=== PATIENT | female | born 1960 | race Caucasian/White ===

== ENCOUNTER 2025-06-23 19:29 | Emergency (ER) | payer MEDICARE | END 2025-06-23 22:32 | disposition home or self-care (01) | LOC: JP.ED 19:29 | DX: S00.83XA Contusion of other part of head, initial encounter (principal); S09.90XA Unspecified injury of head, initial encounter; J44.89 Other specified chronic obstructive pulmonary disease; F17.200 Nicotine dependence, unspecified, uncomplicated; Z79.82 Long term (current) use of aspirin; Z79.899 Other long term (current) drug therapy; Z90.710 Acquired absence of both cervix and uterus; W19.XXXA Unspecified fall, initial encounter; Y92.001 Dining room of unspecified non-institutional (private) residence as the place of occurrence of the external cause; Y92.009 Unspecified place in unspecified non-institutional (private) residence as the place of occurrence of the external cause | CPT/HCPCS: 70450; 70486; 72125; 76377; 99283 ==

== ENCOUNTER 2025-09-10 22:59 | Inpatient (IN) | payer MEDICARE ==
[2025-09-11 00:36] LABS: BASOPHILS ABSOLUTE AUTO 0.03 K/uL (0.00-0.10); BASOPHILS PERCENT AUTO 0.2 % (0.1-1.3); EOSINOPHILS PERCENT AUTO 0.0 % (0.0-5.4); IMMATURE GRAN ABSOLUTE AUTO 0.09 K/uL (0.00-0.23); IMMATURE GRAN PERCENT AUTO 0.7 % (0.0-0.7); LYMPHOCYTES ABSOLUTE AUTO 1.17 K/uL (0.8-3.3); LYMPHOCYTES PERCENT AUTO 8.7 % (11.4-47.7); MONOCYTES ABSOLUTE AUTO 0.60 K/uL (0.20-0.90); MONOCYTES PERCENT AUTO 4.4 % (3.3-12.6); NEUTROPHILS ABSOLUTE AUTO 11.63 K/uL (1.0-7.6); NEUTROPHILS PERCENT AUTO 86.0 % (40.0-78.1); PLATELET COUNT,PLT 291 K/uL (130-375); RED BLOOD CELL COUNT 4.54 M/uL (3.77-5.24); WHITE BLOOD CELL COUNT,WBC 13.5 K/uL (3.2-11.0)
[2025-09-11 00:40] LABS: EOSINOPHILS ABSOLUTE AUTO 0.00 K/uL (0.00-0.40)
[2025-09-11] MEDS: methylPREDNISolone Sodium Succinate 125 MG/2 ML SDV IM ONE (00:46)
[2025-09-11 01:01] LABS: LACTIC ACID 1.4 mmol/L (0.4-2.0)
[2025-09-11 01:11] LABS: A/G RATIO 0.9 (1.2-2.2); ALANINE AMINOTRANSFERASE,ALT 33 U/L (12-78); ASPARTATE AMNIOTRANSFERASE,AST 17 U/L (15-37); BILIRUBIN TOTAL 0.4 mg/dL (0.2-1.0); BLOOD UREA NITROGEN,BUN 15 mg/dL (7-18); CARBON DIOXIDE,CO2 28 mmol/L (21-32); CHLORIDE,CL 101 mmol/L (100-108); CREATININE 0.9 mg/dL (0.6-1.0); EST CRCL DRUG DOSING (CG) 50.60 mL/min; ESTIMATED GFR 72 mL/min (>60); GLUCOSE RANDOM 173 mg/dL (74-106); POTASSIUM,K 3.5 mmol/L (3.6-5.2); PROTEIN TOTAL,TP 6.5 g/dL (6.4-8.2); SODIUM,NA 138 mmol/L (140-148); TROPONIN I HIGH SENSITIVITY 5.1 pg/mL (<=60.3)
[2025-09-11] MEDS ORDERED: Ondansetron 4 MG/2 ML SDV IV PRN (03:33)
[2025-09-11] MEDS ORDERED: Magnesium Hydroxide 400 MG/5 ML Susp 30 ML Cup PO PRN (03:33)
[2025-09-11] MEDS ORDERED: Albuterol 0.083% 2.5 MG/3 ML Neb Soln NEB PRN (03:33)
[2025-09-11] MEDS ORDERED: Sennosides/Docusate Sodium 50-8.6 MG Tab PO PRN (03:33)
[2025-09-11] MEDS ORDERED: Ondansetron 4 MG Tab.DIS PO PRN (03:33)
[2025-09-11] MEDS: Potassium Chloride 20 MEQ Tab.ER PO ONE (04:32)
[2025-09-11 06:05] LABS: BASOPHILS PERCENT AUTO 0.1 % (0.1-1.3); EOSINOPHILS PERCENT AUTO 0.0 % (0.0-5.4); IMMATURE GRAN ABSOLUTE AUTO 0.12 K/uL (0.00-0.23); IMMATURE GRAN PERCENT AUTO 1.0 % (0.0-0.7); LYMPHOCYTES ABSOLUTE AUTO 0.55 K/uL (0.8-3.3); LYMPHOCYTES PERCENT AUTO 4.5 % (11.4-47.7); MONOCYTES ABSOLUTE AUTO 0.15 K/uL (0.20-0.90); MONOCYTES PERCENT AUTO 1.2 % (3.3-12.6); NEUTROPHILS ABSOLUTE AUTO 11.47 K/uL (1.0-7.6); NEUTROPHILS PERCENT AUTO 93.2 % (40.0-78.1); PLATELET COUNT,PLT 272 K/uL (130-375); RED BLOOD CELL COUNT 4.57 M/uL (3.77-5.24); WHITE BLOOD CELL COUNT,WBC 12.3 K/uL (3.2-11.0)
[2025-09-11 06:09] LABS: BASOPHILS ABSOLUTE AUTO 0.01 K/uL (0.00-0.10); EOSINOPHILS ABSOLUTE AUTO 0.00 K/uL (0.00-0.40)
[2025-09-11 06:24] LABS: BLOOD UREA NITROGEN,BUN 15.0 mg/dL (7-18); CARBON DIOXIDE,CO2 28.0 mmol/L (21-32); CHLORIDE,CL 102.0 mmol/L (100-108); CREATININE 1.1 mg/dL (0.6-1.0); EST CRCL DRUG DOSING (CG) 41.4 mL/min; ESTIMATED GFR 56.0 mL/min (>60); GLUCOSE RANDOM 225.0 mg/dL (74-106); POTASSIUM,K 3.7 mmol/L (3.6-5.2); SODIUM,NA 139.0 mmol/L (140-148)
[2025-09-11] MEDS: buPROPion 150 MG Tab.ER PO SCH (08:20)
== END 2025-09-11 11:00 | disposition home or self-care (01) | DRG 189 ==
LOC: JP.ED 22:59 → JP.MS 09-11 03:03
PROVIDERS: ADMIT Nurse Practitioner; ATTEND Internal Medicine
DX: J45.901 Unspecified asthma with (acute) exacerbation (principal); J96.01 Acute respiratory failure with hypoxia; J45.31 Mild persistent asthma with (acute) exacerbation; J44.1 Chronic obstructive pulmonary disease with (acute) exacerbation; J44.0 Chronic obstructive pulmonary disease with (acute) lower respiratory infection; I42.9 Cardiomyopathy, unspecified; J20.9 Acute bronchitis, unspecified; I11.0 Hypertensive heart disease with heart failure; E87.6 Hypokalemia; I50.9 Heart failure, unspecified; I25.10 Atherosclerotic heart disease of native coronary artery without angina pectoris; G47.30 Sleep apnea, unspecified; K21.9 Gastro-esophageal reflux disease without esophagitis; G89.29 Other chronic pain; E03.9 Hypothyroidism, unspecified; M06.9 Rheumatoid arthritis, unspecified; G25.81 Restless legs syndrome; F41.9 Anxiety disorder, unspecified; F32.A Depression, unspecified; M19.90 Unspecified osteoarthritis, unspecified site; Z96.659 Presence of unspecified artificial knee joint; Z98.890 Other specified postprocedural states; Z86.16 Personal history of COVID-19; Z79.899 Other long term (current) drug therapy; Z79.2 Long term (current) use of antibiotics; Z79.890 Hormone replacement therapy; Z79.891 Long term (current) use of opiate analgesic; Z72.0 Tobacco use; Z88.8 Allergy status to other drugs, medicaments and biological substances; Z79.1 Long term (current) use of non-steroidal anti-inflammatories (NSAID); Z79.82 Long term (current) use of aspirin; Z90.710 Acquired absence of both cervix and uterus; Z88.1 Allergy status to other antibiotic agents
CPT/HCPCS: 36415; 71045 ×2; 80053; 83605; 83880; 84484; 85025; 86140; 94640; 96372; 99285; A9270 ×2; 80048; J1650; J2919; J7512